=== PATIENT | male | born 1995 | race Hispanic/Latino ===

== ENCOUNTER 2022-04-10 19:40 | Emergency (ER) | payer OTHER ==
[~2022-04-10] VITALS: Ht 167.6 cm; Wt 80.3 kg
[2022-04-10] MEDS ORDERED: CEPHALEXIN 500 MG CAPSULE PO ONE (20:30)
[2022-04-10] MEDS ORDERED: HYDROCODONE/ACETAMINOPHEN 10/325 MG TAB PO ONE (20:30)
[2022-04-10] MEDS ORDERED: TETANUS/DIPHTHERIA TOXOID [ADULT] 0.5 ML VIAL IM ONE (20:30)
[2022-04-10] MEDS ORDERED: CEFAZOLIN SODIUM 1 GM VIAL ONE (20:54)
[2022-04-10] MEDS ORDERED: CEFAZOLIN SODIUM 1 GM VIAL IVP SCH (21:00)
[2022-04-10] MEDS ORDERED: MORPHINE 4 MG SYG IVP ONE (21:30)
[2022-04-10] MEDS ORDERED: ACET-2079 PO (21:30)
[2022-04-10] MEDS ORDERED: CLIN-141 PO (21:30)
[2022-04-10] MEDS ORDERED: ONDANSETRON 4MG INJ IVP ONE (21:30)
[2022-04-10 21:31] VITALS: BP 135/94
== END 2022-04-10 21:35 | disposition home or self-care (01) ==
LOC: EDH 19:40
DX: S67.192A Crushing injury of right middle finger, initial encounter (principal); S62.632B Displaced fracture of distal phalanx of right middle finger, initial encounter for open fracture; Z79.899 Other long term (current) drug therapy; X58.XXXA Exposure to other specified factors, initial encounter; Y93.89 Activity, other specified; Y92.89 Other specified places as the place of occurrence of the external cause; Y99.8 Other external cause status
CPT/HCPCS: 29130; 73140; 90471; 90714; 96374; 96375; 99284; J0690; J2270; J2405